=== PATIENT | female | born 1955 | race Caucasian/White ===

== ENCOUNTER 2016-09-13 09:43 | Outpatient (CLI) | payer OTHER ==
--- NOTE | 2016-09-13 12:22 | RAD ---
TWO VIEWS CHEST: Date: 09-13-16 Comparison: None. History: Bronchitis. FINDINGS: Cardiac silhouette is enlarged. Linear interstitial densities noted bilaterally with attenuation of the bronchopulmonary vasculature in the upper lobes suggesting underlying bullous change. No pneum othorax, pleural fluid, focal consolidation or alveolar edema. IMPRESSION: Chronic findings. No acute findings. POS: [facility]
== END 2016-09-13 09:44 | disposition home or self-care (01) ==
LOC: MADRAD 09:43
PROVIDERS: ATTEND Family Medicine
DX: J40 Bronchitis, not specified as acute or chronic (principal)
CPT/HCPCS: 71020

== ENCOUNTER 2022-02-06 10:03 | Outpatient (CLI) | payer MEDICARE ==
[2022-02-06 10:34] LABS: #Eosinphils 0.1 thou/uL (0.0-0.7); #Lymphocytes 1.9 thou/uL (1.20-3.40); #Monocytes 0.7 thou/uL (0.11-0.59); #Neutrophils 5.1 thou/uL (1.40-6.50); %Basophils 0.6 % (0.0-1.0); %Eosinophils 1.8 % (0.0-10.0); %Lymphocytes 23.5 % (21.0-51.0); %Monocytes 8.8 % (0.0-10.0); %Neutrophils 65.2 % (42.0-75.0); Hemoglobin 9.7 g/dL (12.0-16.0); Mean Corpuscular HGB CONC 32.3 g/dL (32.0-36.0); Mean Corpuscular Hemoglobin 27.2 pg (27.0-31.0); Mean Corpuscular Volume 84.5 fL (78.0-98.0); Mean Platelet Volume 8.2 fL (7.4-10.4); Platelet Count 316 thou/uL (130-400); RBC Distribution Width 15.3 % (11.5-14.5); Red Blood Cell (RBC) Count 3.57 mill/uL (4.20-5.40); White Blood Cell (WBC) Count 7.9 thou/uL (4.8-10.8)
[2022-02-06 10:52] LABS: ALT (SGPT) 28 U/L (8-55); AST (SGOT) 38 U/L (5-34); Albumin 4.3 g/dL (3.4-4.8); Alkaline Phosphatase 117 U/L (40-110); Anion Gap 17 mmol/L (10-20); BUN (Urea Nitrogen) 22 mg/dL (9.8-20.1); Bilirubin, Direct 0.2 mg/dL (0.1-0.3); Bilirubin, Total 0.5 mg/dL (0.2-1.2); Calc. Creatinine Clearance 0 mL/min (70-130); Calcium 9.9 mg/dL (7.8-10.44); Carbon Dioxide 22 mmol/L (23-31); Chloride 106 mmol/L (98-107); Globulin 2.9 g/dL (2.4-3.5); Glucose 83 mg/dL (80-115); Phosphorus 3.5 mg/dL (2.3-4.7); Potassium 4.6 mmol/L (3.5-5.1); Protein, Total 7.2 g/dL (5.8-8.1); Sodium 140 mmol/L (136-145); Uric Acid 8.5 mg/dL (2.6-6.0)
[2022-02-06 11:25] LABS: Thyroid Stimulating Hormone 2.9144 uIU/mL (0.35-4.94)
[2022-02-06 16:25] LABS: T4 8.1 ug/dL (4.87-11.72)
[2022-02-06 18:52] LABS: LDH 304 U/L (125-220)
[2022-02-06 19:22] LABS: Follow-up Chemistry Comp? YES; Follow-up Result - Chemistry REPORT FAXED
== END 2022-02-06 10:04 | disposition home or self-care (01) ==
LOC: MADLAB 10:03
PROVIDERS: ATTEND Internal Medicine Hematology & Oncology
DX: C18.5 Malignant neoplasm of splenic flexure (principal)
CPT/HCPCS: 36415; 80053; 82248; 83615; 84100; 84436; 84443; 84550; 85025

== ENCOUNTER 2022-03-07 08:33 | Outpatient (CLI) | payer MEDICARE ==
[2022-03-07 09:32] LABS: ALT (SGPT) 19 U/L (8-55); AST (SGOT) 33 U/L (5-34); Albumin 4.1 g/dL (3.4-4.8); Alkaline Phosphatase 105 U/L (40-110); Anion Gap 17 mmol/L (10-20); BUN (Urea Nitrogen) 23 mg/dL (9.8-20.1); Bilirubin, Direct 0.1 mg/dL (0.1-0.3); Calc. Creatinine Clearance 0 mL/min (70-130); Calcium 9.5 mg/dL (7.8-10.44); Carbon Dioxide 21 mmol/L (23-31); Estimated GFR 34; Globulin 2.7 g/dL (2.4-3.5); Glucose 174 mg/dL (80-115); Phosphorus 3.6 mg/dL (2.3-4.7); Protein, Total 6.8 g/dL (5.8-8.1); Uric Acid 8.3 mg/dL (2.6-6.0)
[2022-03-07 09:40] LABS: #Basophils 0.1 thou/uL (0.0-0.2); #Eosinphils 0.2 thou/uL (0.0-0.7); #Lymphocytes 1.4 thou/uL (1.20-3.40); #Monocytes 0.4 thou/uL (0.11-0.59); #Neutrophils 4.5 thou/uL (1.40-6.50); %Eosinophils 2.6 % (0.0-10.0); %Lymphocytes 21.1 % (21.0-51.0); %Monocytes 6.3 % (0.0-10.0); Mean Corpuscular HGB CONC 31.7 g/dL (32.0-36.0); Mean Corpuscular Hemoglobin 27.1 pg (27.0-31.0); Mean Corpuscular Volume 85.4 fL (78.0-98.0); Mean Platelet Volume 8.1 fL (7.4-10.4); Platelet Count 248 thou/uL (130-400); RBC Distribution Width 16.1 % (11.5-14.5); Red Blood Cell (RBC) Count 3.32 mill/uL (4.20-5.40); White Blood Cell (WBC) Count 6.5 thou/uL (4.8-10.8)
[2022-03-07 09:52] LABS: Bilirubin, Total 0.2 mg/dL (0.2-1.2)
[2022-03-07 09:53] LABS: Thyroid Stimulating Hormone 3.3696 uIU/mL (0.35-4.94)
[2022-03-07 10:22] LABS: Chloride 108 mmol/L (98-107); Potassium 4.3 mmol/L (3.5-5.1); Sodium 142 mmol/L (136-145)
[2022-03-07 16:42] LABS: LDH 313 U/L (125-220)
[2022-03-07 18:51] LABS: T4 7.4 ug/dL (4.87-11.72)
== END 2022-03-07 08:34 | disposition home or self-care (01) ==
LOC: MADLAB 08:33
PROVIDERS: ATTEND Internal Medicine Hematology & Oncology
DX: C18.5 Malignant neoplasm of splenic flexure (principal)
CPT/HCPCS: 36415; 80053; 82248; 83615; 84100; 84436; 84443; 84550; 85025

== ENCOUNTER 2022-05-29 09:54 | Outpatient (CLI) | payer OTHER ==
[2022-05-29 10:48] LABS: ALT (SGPT) 22 U/L (8-55); AST (SGOT) 39 U/L (5-34); Albumin 4.5 g/dL (3.4-4.8); Alkaline Phosphatase 136 U/L (40-110); Anion Gap 15 mmol/L (10-20); BUN (Urea Nitrogen) 16 mg/dL (9.8-20.1); Bilirubin, Direct 0.2 mg/dL (0.1-0.3); Bilirubin, Total 0.5 mg/dL (0.2-1.2); Calc. Creatinine Clearance 0 mL/min (70-130); Carbon Dioxide 25 mmol/L (23-31); Chloride 104 mmol/L (98-107); Estimated GFR 42; Globulin 3.2 g/dL (2.4-3.5); Glucose 110 mg/dL (80-115); Phosphorus 3.5 mg/dL (2.3-4.7); Potassium 4.6 mmol/L (3.5-5.1); Protein, Total 7.7 g/dL (5.8-8.1); Sodium 139 mmol/L (136-145); Uric Acid 7.5 mg/dL (2.6-6.0)
[2022-05-29 11:52] LABS: #Eosinphils 0.2 thou/uL (0.0-0.7); #Lymphocytes 1.5 thou/uL (1.20-3.40); #Monocytes 0.6 thou/uL (0.11-0.59); #Neutrophils 6.2 thou/uL (1.40-6.50); %Basophils 0.5 % (0.0-1.0); %Eosinophils 2.1 % (0.0-10.0); %Lymphocytes 17.7 % (21.0-51.0); %Monocytes 6.6 % (0.0-10.0); %Neutrophils 73.2 % (42.0-75.0); Hemoglobin 10.2 g/dL (12.0-16.0); Mean Corpuscular Hemoglobin 23.1 pg (27.0-31.0); Mean Corpuscular Volume 77.2 fL (78.0-98.0); Mean Platelet Volume 8.1 fL (7.4-10.4); Platelet Count 289 thou/uL (130-400); RBC Distribution Width 15.9 % (11.5-14.5); White Blood Cell (WBC) Count 8.5 thou/uL (4.8-10.8)
[2022-05-29 12:13] LABS: Anisocytosis SLIGHT = 6-15 cells (100X) (0-5/hpf); Platelet Morphology Comment Appears Adequate
[2022-05-29 16:35] LABS: LDH 362 U/L (125-220)
[2022-05-29 16:57] LABS: T4 8.1 ug/dL (4.87-11.72)
== END 2022-05-29 09:55 | disposition home or self-care (01) ==
LOC: MADLAB 09:54
PROVIDERS: ATTEND Internal Medicine Hematology & Oncology
DX: C18.5 Malignant neoplasm of splenic flexure (principal)
CPT/HCPCS: 36415; 80053; 82248; 83615; 84100; 84436; 84443; 84550; 85025

== ENCOUNTER 2023-09-12 12:09 | Outpatient (CLI) | payer MEDICARE | END 2023-09-12 12:10 | disposition home or self-care (01) | LOC: MADLAB 12:09 | PROVIDERS: ATTEND Internal Medicine | DX: M47.816 Spondylosis without myelopathy or radiculopathy, lumbar region (principal); E55.9 Vitamin D deficiency, unspecified; M43.8X4 Other specified deforming dorsopathies, thoracic region | CPT/HCPCS: 36415; 72070; 72100; 82306 ==

== ENCOUNTER 2025-06-22 10:30 | Outpatient (CLI) | payer MEDICARE ==
[2025-06-22 11:20] LABS: #Basophils 0.0 thou/uL (0.0-0.2); #Eosinophils 0.1 thou/uL (0.0-0.7); #Lymphocytes 1.3 thou/uL (1.20-3.40); #Monocytes 0.3 thou/uL (0.11-0.59); #Neutrophils 2.7 thou/uL (1.40-6.50); %Basophils 0.7 % (0.0-1.0); %Eosinophils 2.0 % (0.0-10.0); %Lymphocytes 29.5 % (21.0-51.0); %Monocytes 7.4 % (0.0-10.0); %Neutrophils 60.5 % (42.0-75.0); Hematocrit 34.2 % (36.0-47.0); Hemoglobin 11.2 g/dL (12.0-16.0); Mean Corpuscular Hemoglobin 28.5 pg (27.0-31.0); Mean Corpuscular Volume 87.2 fl (78.0-98.0); Platelet Count 214 10x3/uL (130-400); Red Blood Cell (RBC) Count 3.92 mill/uL (4.20-5.40); White Blood Cell (WBC) Count 4.5 10x3/uL (4.8-10.8)
[2025-06-22 11:28] LABS: ALT (SGPT) 43 U/L (Less than 34); AST (SGOT) 48 U/L (11-34); Albumin 4.1 g/dL (3.1-4.5); Alkaline Phosphatase 94 U/L (40-110); Anion Gap 17 mmol/L (10-20); BUN (Urea Nitrogen) 29 mg/dL (9.8-20.1); Bilirubin, Total 0.4 mg/dL (0.3-1.2); Calc. Creatinine Clearance 0 mL/min (70-130); Calcium 10.1 mg/dL (7.8-10.44); Carbon Dioxide 26 mmol/L (23-31); Chloride 103 mmol/L (98-107); Globulin 2.8 g/dL (2.4-3.5); Glucose 101 mg/dL (80-115); Potassium 4.6 mmol/L (3.5-5.1); Sodium 141 mmol/L (136-145); Uric Acid 9.0 mg/dL (2.5-6.2)
[2025-06-22 11:43] LABS: Thyroid Stimulating Hormone 3.3632 uIU/mL (0.35-4.94)
[2025-06-22 16:35] LABS: T4 8.28 ug/dL (4.87-11.72)
== END 2025-06-22 10:31 | disposition home or self-care (01) ==
LOC: MADLAB 10:30
PROVIDERS: ATTEND Internal Medicine Hematology & Oncology
DX: C18.5 Malignant neoplasm of splenic flexure (principal); D50.0 Iron deficiency anemia secondary to blood loss (chronic); Z79.899 Other long term (current) drug therapy
CPT/HCPCS: 36415; 80053; 83615; 84436; 84443; 84550; 85025

== ENCOUNTER 2025-07-20 11:43 | Outpatient (CLI) | payer MEDICARE ==
[2025-07-20 12:41] LABS: #Basophils 0.1 thou/uL (0.0-0.2); #Eosinophils 0.1 thou/uL (0.0-0.7); #Lymphocytes 1.4 thou/uL (1.20-3.40); #Monocytes 0.4 thou/uL (0.11-0.59); #Neutrophils 3.3 thou/uL (1.40-6.50); %Basophils 1.1 % (0.0-1.0); %Eosinophils 1.9 % (0.0-10.0); %Lymphocytes 26.4 % (21.0-51.0); %Monocytes 7.0 % (0.0-10.0); %Neutrophils 63.6 % (42.0-75.0); Hematocrit 34.4 % (36.0-47.0); Hemoglobin 10.9 g/dL (12.0-16.0); Mean Corpuscular Hemoglobin 27.9 pg (27.0-31.0); Mean Corpuscular Volume 87.9 fl (78.0-98.0); Platelet Count 223 10x3/uL (130-400); Red Blood Cell (RBC) Count 3.92 mill/uL (4.20-5.40); White Blood Cell (WBC) Count 5.2 10x3/uL (4.8-10.8)
[2025-07-20 12:59] LABS: ALT (SGPT) 22 U/L (Less than 34); AST (SGOT) 39 U/L (11-34); Albumin 4.2 g/dL (3.1-4.5); Alkaline Phosphatase 104 U/L (40-110); Anion Gap 17 mmol/L (10-20); BUN (Urea Nitrogen) 28 mg/dL (9.8-20.1); Bilirubin, Total 0.4 mg/dL (0.3-1.2); Calc. Creatinine Clearance 0 mL/min (70-130); Calcium 10.0 mg/dL (7.8-10.44); Carbon Dioxide 23 mmol/L (23-31); Cardiac Risk 4.6 (Less than 4.5); Chloride 104 mmol/L (98-107); Cholesterol 238 mg/dl (< 200 Desired); Globulin 2.8 g/dL (2.4-3.5); Glucose 91 mg/dL (80-115); HDL Cholesterol 52 mg/dL (>60 Neg Risk); LDL Cholesterol, Calculated 155 mg/dL; Magnesium 2.2 mg/dL (1.6-2.6); Potassium 4.7 mmol/L (3.5-5.1); Sodium 139 mmol/L (136-145); Triglycerides 154 mg/dL (Less than 150); Uric Acid 8.1 mg/dL (2.5-6.2)
[2025-07-20 13:09] LABS: Thyroid Stimulating Hormone 2.766 uIU/mL (0.35-4.94)
[2025-07-20 16:48] LABS: T4 8.86 ug/dL (4.87-11.72); Vitamin B12 543.0 pg/mL (211-911)
[2025-07-20 18:31] LABS: Vitamin D, 25 Hydroxy 48.4 ng/ml (> 30.0)
== END 2025-07-20 11:44 | disposition home or self-care (01) ==
LOC: MADLAB 11:43
PROVIDERS: ATTEND Internal Medicine
DX: E78.00 Pure hypercholesterolemia, unspecified (principal); G62.9 Polyneuropathy, unspecified; E21.3 Hyperparathyroidism, unspecified; C18.5 Malignant neoplasm of splenic flexure; D50.0 Iron deficiency anemia secondary to blood loss (chronic); Z79.899 Other long term (current) drug therapy
CPT/HCPCS: 36415; 80053; 80061; 82306; 82607; 83615; 83735; 83970; 84436; 84443; 84550; 85025

== ENCOUNTER 2025-08-17 10:27 | Outpatient (CLI) | payer MEDICARE ==
[2025-08-17 10:45] LABS: #Basophils 0.1 thou/uL (0.0-0.2); #Eosinophils 0.1 thou/uL (0.0-0.7); #Lymphocytes 1.5 thou/uL (1.20-3.40); #Monocytes 0.4 thou/uL (0.11-0.59); #Neutrophils 2.6 thou/uL (1.40-6.50); %Basophils 1.2 % (0.0-1.0); %Eosinophils 2.1 % (0.0-10.0); %Lymphocytes 32.4 % (21.0-51.0); %Monocytes 8.3 % (0.0-10.0); %Neutrophils 56.0 % (42.0-75.0); Hematocrit 33.0 % (36.0-47.0); Hemoglobin 10.6 g/dL (12.0-16.0); Mean Corpuscular Hemoglobin 28.8 pg (27.0-31.0); Mean Corpuscular Volume 89.8 fl (78.0-98.0); Platelet Count 214 10x3/uL (130-400); Red Blood Cell (RBC) Count 3.67 mill/uL (4.20-5.40); White Blood Cell (WBC) Count 4.6 10x3/uL (4.8-10.8)
[2025-08-17 11:00] LABS: ALT (SGPT) 23 U/L (Less than 34); AST (SGOT) 39 U/L (11-34); Albumin 4.1 g/dL (3.1-4.5); Alkaline Phosphatase 107 U/L (40-110); Anion Gap 16 mmol/L (10-20); BUN (Urea Nitrogen) 30 mg/dL (9.8-20.1); Bilirubin, Total 0.3 mg/dL (0.3-1.2); Calc. Creatinine Clearance 0 mL/min (70-130); Calcium 9.9 mg/dL (7.8-10.44); Carbon Dioxide 23 mmol/L (23-31); Chloride 101 mmol/L (98-107); Globulin 3.0 g/dL (2.4-3.5); Glucose 94 mg/dL (80-115); Potassium 4.6 mmol/L (3.5-5.1); Sodium 135 mmol/L (136-145); Uric Acid 8.7 mg/dL (2.5-6.2)
== END 2025-08-17 10:28 | disposition home or self-care (01) ==
LOC: MADLAB 10:27
PROVIDERS: ATTEND Internal Medicine Hematology & Oncology
DX: C18.5 Malignant neoplasm of splenic flexure (principal); D50.0 Iron deficiency anemia secondary to blood loss (chronic); Z79.899 Other long term (current) drug therapy
CPT/HCPCS: 36415; 80053; 83615; 84436; 84443; 84550; 85025